=== PATIENT | female | born 1980 ===

== ENCOUNTER 2021-12-20 10:15 | Inpatient (IN) | payer OTHER ==
[~2021-12-20] VITALS: Ht 157.5 cm; Wt 67.1 kg
== END 2021-12-22 10:20 | disposition home or self-care (01) | DRG 735 ==
LOC: OB/GYN 12-21 06:42 → O/R 12-21 06:42 → SURH 12-21 10:15 → OB/GYN 12-21 15:58 → SURH 12-21 18:45 → OB/GYN 12-22 10:20
PROVIDERS: ADMIT Obstetrics & Gynecology Gynecologic Oncology; ATTEND Obstetrics & Gynecology Gynecologic Oncology
PROC: 07TC4ZZ Resection of Pelvis Lymphatic, Percutaneous Endoscopic Approach (ICD-10-PCS; 2021-12-21)
PROC: 0UT74ZZ Resection of Bilateral Fallopian Tubes, Percutaneous Endoscopic Approach (ICD-10-PCS; 2021-12-21)
PROC: 0UT94ZZ Resection of Uterus, Percutaneous Endoscopic Approach (ICD-10-PCS; 2021-12-21)
PROC: 0UT24ZZ Resection of Bilateral Ovaries, Percutaneous Endoscopic Approach (ICD-10-PCS; 2021-12-21)
PROC: 07TD4ZZ Resection of Aortic Lymphatic, Percutaneous Endoscopic Approach (ICD-10-PCS; principal; 2021-12-21 18:45)
DX: N85.01 Benign endometrial hyperplasia (principal); N72 Inflammatory disease of cervix uteri; N83.291 Other ovarian cyst, right side; N83.292 Other ovarian cyst, left side; Z20.822 Contact with and (suspected) exposure to COVID-19; N83.02 Follicular cyst of left ovary